=== PATIENT | female | born 1985 | race Caucasian/White ===

== ENCOUNTER → 2016-09-14 | Outpatient (CLI) | payer OTHER | LOC: LAB 15:18 | DX: J31.2 Chronic pharyngitis (principal) ==

== ENCOUNTER → 2018-10-01 | Outpatient (CLI) | payer OTHER ==
[2018-10-01 14:29] LABS: EOS # 0.1 (0.04-0.40); EOS % 1.9 % (1.0-5.0); HEMATOCRIT 40.9 % (37.0-47.0); HEMOGLOBIN 13.8 g/dL (12.5-16.0); LYMPH# 1.7 (1.50-4.00); MEAN CELL VOLUME 90 fl (78-100); MEAN CORPUSCULAR HEMOGLOBIN 31 pg (27-31); MEAN CORPUSCULAR HGB CONC 34 g/dL (33-37); MEAN PLATELET VOLUME 9.7 fl (7.4-10.4); MONO # 0.4 (0.20-0.80); NEU # 4.1 (1.40-6.50); PLATELET COUNT 279 K/mm3 (130-400); RED BLOOD COUNT 4.53 M/mm3 (4.10-5.30); RED CELL DISTRIBUTION WIDTH 12.4 % (11.5-14.5); WHITE BLOOD COUNT 6.2 K/mm3 (4.8-10.8)
[2018-10-01 14:45] LABS: ALBUMIN 4.6 g/dL (3.5-5.0); POTASSIUM 3.8 mmol/L (3.5-5.1)
[2018-10-01 14:46] LABS: CALCIUM 9.6 mg/dL (8.3-10.5)
[2018-10-01 14:50] LABS: TOTAL BILIRUBIN 1.2 mg/dL (0.2-1.2)
[2018-10-02 01:12] LABS: T3 TOTAL 110 ng/dL (87-178)
== END ==
LOC: LAB 14:09
PROVIDERS: Family Medicine
DX: Z13.220 Encounter for screening for lipoid disorders (principal); R03.0 Elevated blood-pressure reading, without diagnosis of hypertension; R53.83 Other fatigue

== ENCOUNTER 2018-10-18 15:26 | Emergency (ER) | payer OTHER ==
[~2018-10-18] VITALS: Ht 167.6 cm; Wt 76.8 kg
[2018-10-18] MEDS ORDERED: FLAX SEED OIL1000 MG (15:42)
[2018-10-18] MEDS ORDERED: CELEXA 20MG20 MG/TA1 PO (15:42)
[2018-10-18] MEDS ORDERED: CALCIUM500 M1 (15:42)
[2018-10-18] MEDS ORDERED: LOPRESSOR 225 MG/TAB PO (15:42)
[2018-10-18] MEDS ORDERED: MAGNESIUM200 MG (15:43)
[2018-10-18] MEDS ORDERED: NATURAL ZINC50 MG (15:43)
[2018-10-18 16:09] LABS: EOS # 0.1 (0.04-0.40); EOS % 0.6 % (1.0-5.0); HEMATOCRIT 42.6 % (37.0-47.0); HEMOGLOBIN 14.3 g/dL (12.5-16.0); LYMPH# 1.6 (1.50-4.00); MEAN CELL VOLUME 90 fl (78-100); MEAN CORPUSCULAR HEMOGLOBIN 30 pg (27-31); MEAN CORPUSCULAR HGB CONC 34 g/dL (33-37); MEAN PLATELET VOLUME 9.8 fl (7.4-10.4); MONO # 0.6 (0.20-0.80); NEU # 6.1 (1.40-6.50); PLATELET COUNT 271 K/mm3 (130-400); RED BLOOD COUNT 4.74 M/mm3 (4.10-5.30); RED CELL DISTRIBUTION WIDTH 12.5 % (11.5-14.5); WHITE BLOOD COUNT 8.4 K/mm3 (4.8-10.8)
[2018-10-18 16:25] LABS: ALBUMIN 4.3 g/dL (3.5-5.0)
[2018-10-18 16:26] LABS: POTASSIUM 4.1 mmol/L (3.5-5.1); SODIUM 139 mmol/L (136-145)
[2018-10-18 16:27] LABS: CALCIUM 9.6 mg/dL (8.3-10.5); PROTHROMBIN TIME 10.3 SECONDS (9.0-12.0)
[2018-10-18 16:28] LABS: GLUCOSE 91 mg/dL (65-105); TOTAL PROTEIN 7.4 g/dL (6.4-8.3)
[2018-10-18 16:29] LABS: CARBON DIOXIDE 23 mmol/L (22-29)
[2018-10-18 16:30] LABS: TOTAL BILIRUBIN 1.7 mg/dL (0.2-1.2)
[2018-10-18 16:33] LABS: AST-SGOT 15 U/L (5-34)
[2018-10-18 16:34] LABS: ALT/SGPT 14 U/L (0-55)
[2018-10-18 16:48] LABS: TROPONIN-I < 0.03 ng/mL (<0.030)
[2018-10-18 16:50] LABS: D-DIMER 0.39 mg/L FEU (0.15-0.50)
[2018-10-18 17:39] VITALS: BP 123/76
== END 2018-10-18 17:48 | disposition home or self-care (01) ==
LOC: ED 15:26
PROVIDERS: Nurse Practitioner Primary Care
DX: R07.89 Other chest pain (principal); I10 Essential (primary) hypertension; F41.9 Anxiety disorder, unspecified

== ENCOUNTER → 2018-11-01 | Outpatient (CLI) | payer OTHER ==
[2018-10-18 17:39] VITALS: BP 123/76
[~2018-11-01] MED LIST: CALCIUM500 M1; CELEXA 20MG20 MG/TA1 PO; FLAX SEED OIL1000 MG; LOPRESSOR 225 MG/TAB PO; MAGNESIUM200 MG; NATURAL ZINC50 MG
== END ==
LOC: CARDREHAB 08:14 → CARDLAB 10:32
DX: R07.9 Chest pain, unspecified (principal)

== ENCOUNTER → 2018-11-07 | Outpatient (CLI) | payer OTHER ==
[2018-10-18 17:39] VITALS: BP 123/76
== END ==
LOC: VAS 11-04 17:00 → RAD 11-04 17:00 → VAS 16:42
DX: I07.1 Rheumatic tricuspid insufficiency (principal); R07.89 Other chest pain

== ENCOUNTER → 2019-08-22 | Outpatient (CLI) | payer OTHER ==
[2019-08-22 16:03] LABS: EOS # 0.1 (0.04-0.40); EOS % 1.5 % (1.0-5.0); HEMATOCRIT 39.4 % (37.0-47.0); HEMOGLOBIN 12.9 g/dL (12.5-16.0); MEAN CELL VOLUME 95 fl (78-100); MEAN CORPUSCULAR HEMOGLOBIN 31 pg (27-31); MEAN CORPUSCULAR HGB CONC 33 g/dL (33-37); MEAN PLATELET VOLUME 9.3 fl (7.4-10.4); MONO # 0.6 (0.20-0.80); NEU # 4.9 (1.40-6.50); PLATELET COUNT 291 K/mm3 (130-400); RED BLOOD COUNT 4.14 M/mm3 (4.10-5.30); RED CELL DISTRIBUTION WIDTH 12.1 % (11.5-14.5); WHITE BLOOD COUNT 7.6 K/mm3 (4.8-10.8)
[2019-08-22 16:13] LABS: CALCIUM 8.7 mg/dL (8.3-10.5)
[2019-08-22 16:15] LABS: TOTAL PROTEIN 7.2 g/dL (6.4-8.3)
[2019-08-22 16:17] LABS: TOTAL BILIRUBIN 0.7 mg/dL (0.2-1.2)
== END ==
LOC: LAB 15:49
PROVIDERS: Family Medicine
DX: Z00.00 Encounter for general adult medical examination without abnormal findings (principal); E78.5 Hyperlipidemia, unspecified

== ENCOUNTER → 2020-11-23 | Outpatient (CLI) | payer OTHER ==
[2020-11-23 11:44] LABS: ALBUMIN 4.2 g/dL (3.5-5.0); BASO # 0.03 K/mm3 (0.02-0.10); EOS # 0.18 K/mm3 (0.04-0.40); EOS % 2.8 % (1.0-5.0); HEMATOCRIT 43.7 % (37.0-47.0); HEMOGLOBIN 14.3 g/dL (12.5-16.0); LYMPH# 1.77 K/mm3 (1.50-4.00); MEAN CELL VOLUME 96 fl (78-100); MEAN CORPUSCULAR HEMOGLOBIN 31 pg (27-31); MEAN CORPUSCULAR HGB CONC 33 g/dL (33-37); MEAN PLATELET VOLUME 10.7 fl (7.4-10.4); MONO # 0.41 K/mm3 (0.20-0.80); NEU # 4.13 K/mm3 (1.40-6.50); PLATELET COUNT 179 K/mm3 (130-400); POTASSIUM 4.2 mmol/L (3.5-5.1); RED BLOOD COUNT 4.56 M/mm3 (4.10-5.30); RED CELL DISTRIBUTION WIDTH 12.2 % (11.5-14.5); WHITE BLOOD COUNT 6.5 K/mm3 (4.8-10.8)
[2020-11-23 11:45] LABS: CALCIUM 9.5 mg/dL (8.3-10.5)
[2020-11-23 11:47] LABS: TOTAL PROTEIN 7.1 g/dL (6.4-8.3)
[2020-11-23 11:48] LABS: TOTAL BILIRUBIN 1.3 mg/dL (0.2-1.2)
== END ==
LOC: LAB 10:37
PROVIDERS: Family Medicine
DX: Z00.00 Encounter for general adult medical examination without abnormal findings (principal); E78.5 Hyperlipidemia, unspecified

== ENCOUNTER → 2021-08-18 | Outpatient (CLI) | payer OTHER | LOC: LAB 07:51 | DX: E78.5 Hyperlipidemia, unspecified (principal) ==

== ENCOUNTER → 2023-08-06 | Outpatient (REF) | payer OTHER | LOC: LAB 11:10 | DX: Z20.822 Contact with and (suspected) exposure to COVID-19 (principal) ==

== ENCOUNTER → 2023-09-03 | Outpatient (CLI) | payer OTHER ==
[2023-09-03 15:50] LABS: BASO # 0.04 K/mm3 (0.02-0.10); EOS # 0.23 K/mm3 (0.04-0.40); EOS % 3.2 % (1.0-5.0); HEMATOCRIT 39.6 % (37.0-47.0); HEMOGLOBIN 12.9 g/dL (12.5-16.0); LYMPH# 1.64 K/mm3 (1.50-4.00); MEAN CELL VOLUME 98 fl (78-100); MEAN CORPUSCULAR HEMOGLOBIN 32 pg (27-31); MEAN CORPUSCULAR HGB CONC 33 g/dL (33-37); MEAN PLATELET VOLUME 9.1 fl (7.4-10.4); MONO # 0.56 K/mm3 (0.20-0.80); NEU # 4.73 K/mm3 (1.40-6.50); PLATELET COUNT 276 K/mm3 (130-400); RED BLOOD COUNT 4.06 M/mm3 (4.10-5.30); RED CELL DISTRIBUTION WIDTH 13.6 % (11.5-14.5); WHITE BLOOD COUNT 7.2 K/mm3 (4.8-10.8)
[2023-09-03 15:56] LABS: ALBUMIN 3.9 g/dL (3.5-5.0)
[2023-09-03 15:57] LABS: CALCIUM 9.5 mg/dL (8.3-10.5)
[2023-09-03 15:58] LABS: TOTAL PROTEIN 6.6 g/dL (6.4-8.3)
[2023-09-03 16:00] LABS: TOTAL BILIRUBIN 0.5 mg/dL (0.2-1.2)
== END ==
LOC: LAB 15:35
PROVIDERS: Family Medicine
DX: E78.5 Hyperlipidemia, unspecified (principal); I10 Essential (primary) hypertension